=== PATIENT | female | born 1950 | race Caucasian/White ===

== ENCOUNTER 2017-12-02 16:39 | Emergency (ER) | payer OTHER, MEDICAID ==
[2017-12-02 17:34] LABS: AADO2 Arterial 98.8 mmHg (7.0-24.0); Allen Test ACCEPTAB; Arterial Base Excess 4.8 mmol/L (-3.0-3); Arterial Blood Gas Oxygen Sat 92.3 mmHG (95.0-98.0); Arterial COHb 0.6 % (0.0-3.0); Arterial Fraction of Oxyhgb 91.5 % (93.0-99.0); Arterial HCO3 31.8 mmol/L (22.0-26.0); Arterial MetHb 0.3 % (0.0-1.5); Arterial Total Hemglobin 10.8 g/dl (12.0-18.0); Arterial pCO2 60.1 mmhg (35-45); MODE NASAL CANNULA; Site Right Radial
[2017-12-02 17:35] LABS: ADD MAN DIFF? NO
[2017-12-02] MEDS: ALBUTEROL 0.5% (NEB) 2.5 MG/0.5 ML AMP INH (17:35)
[2017-12-02] MEDS: IPRATROPIUM (NEB) 0.5 MG/2.5 ML AMP INH (17:35)
[2017-12-02] MEDS: ACETAMINOPHEN 325 MG TAB PO (17:37)
[2017-12-02] MEDS: METHYLPREDNISOLONE 125 MG INJ IV (17:37)
[2017-12-02] MEDS: SODIUM CHLORIDE 0.9% 1L BAG IV* (17:38)
[2017-12-02 17:41] LABS: WHITE BLOOD COUNT 15.4 10^3/ul (4.8-10.8)
[2017-12-02 17:41] LABS: BASOPHILS % 0.1 % (0.0-2.0); EOSINOPHILS # 1.2 10^3/ul (0.0-0.5); HEMATOCRIT 32.2 % (37.0-47.0); HEMOGLOBIN 9.7 g/dl (12.0-16.0); LYMPHOCYTES # 0.9 10^3/ul (0.8-2.9); LYMPHOCYTES % 5.9 % (15.0-51.0); MEAN CORPUSCULAR HEMOGLOBIN 28.4 pg (29.0-33.0); MEAN CORPUSCULAR HGB CONC 30.1 g/dl (32.0-37.0); MEAN CORPUSCULAR VOLUME 94.2 fl (82.0-101.0); MEAN PLATELET VOLUME 10.3 fl (7.4-10.4); MONOCYTE # 0.8 10^3/ul (0.3-0.9); MONOCYTES % 4.9 % (0.0-11.0); NEUTROPHIL # 12.5 10^3/ul (1.6-7.5); NEUTROPHILS % 80.8 % (39.0-77.0); PLATELET COUNT 197 10^3/UL (140-415); RED BLOOD COUNT 3.42 10^6/ul (4.20-5.40); RED CELL DISTRIBUTION WIDTH 16.4 % (11.5-14.5)
[2017-12-02 18:00] LABS: ALANINE AMINOTRANSFERASE 16 IU/L (13-69); ALBUMIN 3.4 g/dl (3.3-4.9); ALBUMIN/GLOBULIN RATIO 0.89; ALKALINE PHOSPHATASE 62 IU/L (42-121); ANION GAP 13 (8-16); ASPARTATE AMINO TRANSFERASE 22 IU/L (15-46); BILIRUBIN,INDIRECT 0.8 mg/dl (0-1.1); BILIRUBIN,TOTAL 0.8 mg/dl (0.2-1.3); BLOOD UREA NITROGEN 17 mg/dl (7-20); CALCIUM 8.8 mg/dl (8.4-10.2); CARBON DIOXIDE 31 mmol/L (21-31); CHLORIDE 102 mmol/L (97-110); CREATININE 0.88 mg/dl (0.44-1.00); GLUCOSE 161 mg/dl (70-220); POTASSIUM 4.4 mmol/L (3.5-5.1); SODIUM 142 mmol/L (135-144); TOTAL PROTEIN 7.2 g/dl (6.1-8.1)
[2017-12-02 18:02] LABS: LACTIC ACID 2.3 mmol/L (0.5-2.0)
[2017-12-02 18:06] LABS: PROTIME 13.3 Sec (11.9-14.9)
[2017-12-02 18:07] LABS: PARTIAL THROMBOPLASTIN TIME 29.2 Sec (25.0-35.0)
[2017-12-02 18:11] LABS: TROPONIN-I 0.027 ng/ml (0.000-0.120)
[2017-12-02] MEDS: CEFEPIME 2GM/50 ML (PMX) 50 ML IVPB (18:21)
[2017-12-02 19:47] LABS: LACTIC ACID 1.4 mmol/L (0.5-2.0)
== END 2017-12-02 22:00 | disposition short-term general hospital (02) ==
LOC: E/R 22:00
DX: A41.9 Sepsis, unspecified organism (principal); N30.00 Acute cystitis without hematuria; J44.1 Chronic obstructive pulmonary disease with (acute) exacerbation; I10 Essential (primary) hypertension; I50.9 Heart failure, unspecified; E11.9 Type 2 diabetes mellitus without complications; E66.01 Morbid (severe) obesity due to excess calories; Z68.38 Body mass index [BMI] 38.0-38.9, adult; Z79.82 Long term (current) use of aspirin; Z79.84 Long term (current) use of oral hypoglycemic drugs
CPT/HCPCS: 36415; 36600; 71045; 80053; 82803; 83605; 84484; 85025; 85610; 85730; 87040; 93005; 94644; 96374; 96375; 99291-25

== ENCOUNTER 2017-12-27 10:43 | Emergency (ER) | payer OTHER ==
[2017-12-27 11:11] LABS: ADD MAN DIFF? NO
[2017-12-27 11:17] LABS: WHITE BLOOD COUNT 10.9 10^3/ul (4.8-10.8)
[2017-12-27 11:17] LABS: BASOPHILS % 0.2 % (0.0-2.0); EOSINOPHILS # 0.6 10^3/ul (0.0-0.5); EOSINOPHILS % 5.2 % (0.0-7.0); HEMATOCRIT 35.7 % (37.0-47.0); HEMOGLOBIN 10.7 g/dl (12.0-16.0); LYMPHOCYTES # 0.9 10^3/ul (0.8-2.9); MEAN CORPUSCULAR HEMOGLOBIN 27.9 pg (29.0-33.0); MEAN CORPUSCULAR VOLUME 93.2 fl (82.0-101.0); MEAN PLATELET VOLUME 11.3 fl (7.4-10.4); MONOCYTE # 0.8 10^3/ul (0.3-0.9); MONOCYTES % 7.2 % (0.0-11.0); NEUTROPHIL # 8.6 10^3/ul (1.6-7.5); NEUTROPHILS % 79.2 % (39.0-77.0); PLATELET COUNT 214 10^3/UL (140-415); RED BLOOD COUNT 3.83 10^6/ul (4.20-5.40); RED CELL DISTRIBUTION WIDTH 16.3 % (11.5-14.5)
[2017-12-27 11:33] LABS: ALANINE AMINOTRANSFERASE 22 IU/L (13-69); ALBUMIN 3.7 g/dl (3.3-4.9); ALKALINE PHOSPHATASE 92 IU/L (42-121); ANION GAP 10 (8-16); ASPARTATE AMINO TRANSFERASE 44 IU/L (15-46); BILIRUBIN,INDIRECT 0.8 mg/dl (0-1.1); BILIRUBIN,TOTAL 0.8 mg/dl (0.2-1.3); BLOOD UREA NITROGEN 16 mg/dl (7-20); CALCIUM 8.9 mg/dl (8.4-10.2); CARBON DIOXIDE 33 mmol/L (21-31); CHLORIDE 103 mmol/L (97-110); CREATININE 0.57 mg/dl (0.44-1.00); GLUCOSE 176 mg/dl (70-220); POTASSIUM 4.5 mmol/L (3.5-5.1); SODIUM 141 mmol/L (135-144); TOTAL PROTEIN 7.8 g/dl (6.1-8.1)
[2017-12-27 11:38] LABS: LACTIC ACID 2.3 mmol/L (0.5-2.0)
[2017-12-27 11:42] LABS: ADD UMIC YES; UR ASCORBIC ACID 20 mg/dL (NEGATIVE); UR BILIRUBIN (Dip) NEGATIVE (NEGATIVE); UR BLOOD (Dip) NEGATIVE (NEGATIVE); UR CLARITY CLEAR (CLEAR); UR COLOR YELLOW (YELLOW); UR GLUCOSE (Dip) NEGATIVE (NEGATIVE); UR KETONES (Dip) NEGATIVE (NEGATIVE); UR LEUKOCYTE ESTERASE (Dip) 2+ Leu/ul (NEGATIVE); UR NITRITE (Dip) NEGATIVE (NEGATIVE); UR RBC 1 /HPF (0-5); UR SPECIFIC GRAVITY (Dip) 1.012 (1.003-1.030); UR TOTAL PROTEIN (Dip) NEGATIVE (NEGATIVE); UR UROBILINOGEN (Dip) NEGATIVE (NEGATIVE); UR WBC 113 /HPF (0-5)
[2017-12-27 11:43] LABS: TROPONIN-I < 0.012 ng/ml (0.000-0.120)
[2017-12-27 11:58] LABS: INR 0.93; PROTIME 12.5 Sec (11.9-14.9)
[2017-12-27 11:59] LABS: PARTIAL THROMBOPLASTIN TIME 28.3 Sec (25.0-35.0)
[2017-12-27] MEDS: CEFTRIAXONE 1 GM/50 ML (PMX) 50 ML IVPB (13:13)
[2017-12-27] MEDS: SOD CHLORIDE 0.9% IV (13:14)
[2017-12-27 13:52] LABS: LACTIC ACID 1.1 mmol/L (0.5-2.0)
[2017-12-27] MEDS ORDERED: ACETAMINOPHEN 325 MG TAB (14:09)
[2017-12-27] MEDS: ACETAMINOPHEN 500 MG TAB PO (14:11)
== END 2017-12-27 14:21 | disposition short-term general hospital (02) ==
LOC: E/R 14:21
DX: S80.01XA Contusion of right knee, initial encounter (principal); N39.0 Urinary tract infection, site not specified; A41.9 Sepsis, unspecified organism; J44.9 Chronic obstructive pulmonary disease, unspecified; I50.9 Heart failure, unspecified; I10 Essential (primary) hypertension; W05.0XXA Fall from non-moving wheelchair, initial encounter; Y92.9 Unspecified place or not applicable; Z79.82 Long term (current) use of aspirin
CPT/HCPCS: 36415; 71045; 73562; 80053; 81001; 83605; 84484; 85025; 85610; 85730; 87040; 87086; 93005; 96374; 99285-25